=== PATIENT | male | born 1985 | race Caucasian/White ===

== ENCOUNTER 2017-03-26 12:49 | Emergency (ER) | payer OTHER, MEDICAID ==
[2017-03-26 12:57] VITALS: RESP 18
--- NOTE | 2017-03-26 12:59 | EDPHY ---
H & P Time Seen by Provider: 03/26/17 12:58 HPI/ROS: Chief complaint. Upset stomach HPI. Patient comes to the emergency department with another patient decides to check in. He has mid abdominal pain for years. He has had no change it is not worse or having new symptoms. He has been previously worked up for this by PCP though is unsure of the diagnosis. He describes as crampy and sharp. No vomiting or diarrhea. No urinary symptoms. No fever. It is better with eating. No radiation. No chest discomfort or trouble breathing. He asks me several times if I can give him something to eat. ROS Constitutional. no fever/chills, no weakness Eyes. no problems with vision ENT. no sore throat, no nasal drainage Cardiovascular. no chest pain Respiratory. no shortness of breath, no cough Abdominal. Mid abdominal pain for years without vomiting or diarrhea . no problems urinating MS. no calf pain/swelling, no neck/back pain, no joint pain Skin. no rash Lymph. no swollen glands Neuro. no headache, no dizziness, no difficulty walking or with speech Past Medical/Surgical History: Paranoid schizophrenia Social History: Single, daily smoker, no alcohol Smoking Status: Current every day smoker Physical Exam: General Appearance: Alert well-developed male no distress vital signs stable with initial heart rate 110 Eyes: Pupils equal and round no pallor or injection. ENT, Mouth: Mucous membranes are moist. Respiratory: There are no retractions, lungs are clear to auscultation. Cardiovascular: Regular rate and rhythm. Gastrointestinal: Abdomen is soft and nontender, no masses, bowel sounds normal. Neurological: Awake and alert, sensory and motor exams grossly normal. Skin: Warm and dry, no rashes. Musculoskeletal: Neck is supple nontender. Extremities symmetrical, full range of motion. Psychiatric: Patient is oriented X 3, there is no agitation. Constitutional: Initial Vital Signs Temperature (C) 37.0 C 03/26/17 12:54 Heart Rate 110 H 03/26/17 12:54 Respiratory Rate 18 03/26/17 12:54 Blood Pressure 124/79 H 03/26/17 12:54 O2 Sat (%) 94 03/26/17 12:54 O2 Delivery Mode Room Air Allergies/Adverse Reactions: No Known Allergies Allergy (Verified 01/22/14 16:11) Home Medications: Medication Instructions Recorded LORazepam [Ativan] 1 mg PO BID 11/20/14 OLANZapine [Zyprexa] 30 mg PO HS 11/20/14 Oxybutynin Chloride [Oxybutynin 10 mg PO HS 11/20/14 Chloride Er] Zolpidem Tartrate [Ambien] 5 mg PO HS PRN 11/20/14 cloZAPine [Clozapine] 600 mg PO HS 11/20/14 Magnolia Carbonate [Magnolia 600 mg PO HS 11/05/15 Carbonate Cap 300 mg (RX)] Ziprasidone HCl [Geodon] 40 mg PO BID 11/05/15 Medical Decision Making - Diagnostics Imaging Results: One-view upright abdomen shows no evidence of free air or air-fluid levels. It is consistent with constipation ED Course/Re-evaluation: Re-evaluation at 2:10 p.m.. Patient is stable. He and I discussed imaging study results, treatment plan including criteria for return importance of follow -up and further evaluation. He expresses understanding and agreement Differential Diagnosis: Chronic abdominal pain without evidence for acute abdomen. He has had similar symptoms for many years. X-ray consistent with constipation. I also considered viscus perforation and bowel obstruction - Data Points Medications Given: Discontinued Medications Sodium Chloride (Ns) 1,000 mls @ 0 mls/hr IV ONCE ONE; Wide Open PRN Reason: Protocol Stop: 03/26/17 13:01 Last Admin: 03/26/17 13:24 Dose: Not Given Departure - Departure Disposition: Home, Routine, Self-Care Clinical Impression: Abdominal pain Qualifiers: Abdominal location: periumbilical Qualified Code(s): R10.33 - Periumbilical pain Condition: Good Instructions: Constipation (ED), High Fiber Diet (ED) Additional Instructions: Drink plenty of fluids and stay hydrated. Milk of magnesia, magnesium citrate, addison Colace that you may by at the grocery store to help with constipation. Return for worsening pain, fever, vomiting. Recheck in 2-3 days if not improved Referrals: Patient,NotPresent [Unknown] - As per Instructions [facility] [Outside] - 2-3 days, call for appt.
[2017-03-26] MEDS ORDERED: NS 1,000 ML IV ONE (13:00)
[2017-03-26 14:18] VITALS: BP 118/72; PULSE 98; TEMP 98.2; O2SAT 96
== END 2017-03-26 14:18 | disposition home or self-care (01) ==
LOC: EDUNIT#
DX: R10.33 Periumbilical pain (principal); F17.200 Nicotine dependence, unspecified, uncomplicated

== ENCOUNTER 2017-03-27 18:58 | Emergency (ER) | payer OTHER, MEDICAID ==
[2017-03-27] MEDS ORDERED: IPRATROPIUM/ALBUTEROL 3 ML DEYVIAL ONE (19:05)
[2017-03-27] MEDS ORDERED: ALBUTEROL 3 ML DEYVIAL IH ONE (19:10)
--- NOTE | 2017-03-27 19:16 | CPEKG ---
Heart Rate: 96 RR Interval: 625 P-R Interval: 156 QRSD Interval: 114 QT Interval: 380 QTC Interval: 481 P [place]: 70 QRS [place]: 91 T Wave [place]: 37 EKG Severity - ABNORMAL ECG - EKG Impression: SINUS RHYTHM EKG Impression: INCOMPLETE RIGHT BUNDLE BRANCH BLOCK Electronically Signed By: Mely Savage 27-Mar-2017 21:36:44
--- NOTE | 2017-03-27 19:17 | EDPHY ---
HPI/HX/ROS/PE/MDM Narrative: CHIEF COMPLAINT: Abdominal, chest, and head pain HISTORY OF PRESENT ILLNESS: This patient is a 31 year old male with history of schizophrenia arriving via EMS from his private residence complaining of abdominal, heart, and head pain worsening over the last two days. Per EMS, vital signs and EKG were normal in transport. The patient describes his abdominal pain as periumbilical, with slight worsening with food. He endorses reduced appetite. He denies vomiting, diarrhea, fever, history of heartburn or reflux, or history of abdominal surgery. He states his chest pain began around the same time. He endorses shortness of breath, palpitations, lightheadedness, and dry cough. He states he has not tried any medications to relieve his symptoms. He reports he is compliant with his regular medications: Clozaril, Geodon, and Zyprexa. He denies any hallucinations or racing thoughts. He does present with flat affect. No chills, urinary complaints. REVIEW OF SYSTEMS: Aside from elements discussed in the HPI, a comprehensive 10-point review of systems was reviewed and is negative. Limited review due to patient's flat affect. PAST MEDICAL HISTORY: Schizophrenia. SOCIAL HISTORY: Lives alone. Current smoker. VITAL SIGNS: Reviewed by me GENERAL: Flat affect. Well-developed, well-nourished, resting comfortably in no respiratory distress. HEENT: Atraumatic. Eyes: No icterus, no injection. Mouth: moist mucous membranes. No erythema or lesions. Neck: supple with no adenopathy. LUNGS: Coarse, scattered rhonchi. No wheezes. CARDIAC: Regular rate and rhythm, no rubs, murmurs or gallops. ABDOMEN: Epigastric tenderness, LUQ tenderness. No guarding or rebound, soft, nondistended, bowel sounds normal. BACK: No CVA tenderness. EXTREMITIES: No trauma. No edema. Range of motion is normal throughout. NEURO: Alert and oriented, grossly nonfocal. SKIN: Warm and dry, no rash. PSYCHIATRIC: Flat affect. Normal mentation, no agitation. Portions of this note were transcribed by a medical interpreter. I personally performed a history, physical exam, medical decision making, and confirmed accuracy of information the transcribed note. ED Course: The 12 lead EKG was interpreted by myself. See hard copy and/or "tracemaster" electronic copy for interpretation. Sinus rhythm, rate 96. This patient is a 31 year old male with schizophrenia presenting with two day history of chest, abdominal. and head pain. Physical exam reveals epigastric and left upper quadrant tenderness. The patient has rather flat affect, and it was difficult to obtain a full history and review of systems. Plan to order chest x-ray and labs including CBC, CHEM, Troponin, and Lipase. Plan to administer albuterol nebulizer. Patient's laboratory evaluation is largely unremarkable. His lipase is negative. Patient's troponin is negative. Chest x-ray is unremarkable. His shortness of breath was improved with albuterol nebulizer. He received good relief of his epigastric discomfort with the GI cocktail. He tells me that the discomfort has been present for 2 days. I believe this is most likely a GI source, and the patient's chest x-ray does demonstrate airways disease. I doubt coronary artery disease, pancreatitis, or pulmonary infectious process. Patient seems stable on his schizophrenia medications. He is not suicidal, homicidal, or gravely disabled. He feels comfortable being discharged home Plan to discharge home in good condition with instructions to treat his symptoms with omeprazole or similar medication, was given an albuterol meter dose inhaler, and was instructed to follow up with primary care for continued management. The patient is comfortable with this plan. MDM: After history and physical examination, the differential for chest pain and abdominal pain was considered, including but not limited to, myocardial ischemia , acute coronary syndrome, pulmonary embolus, chest wall pain, pleural inflammation, GERD, gastritis, and pulmonary infectious causes. - Data Points Imaging Results: Xray: Chest x-ray was obtained. I viewed the images myself on the PACS system. My interpretation of the images is: Peribronchial fullness, no infiltrate. The radiology interpretation is: Agrees. I discussed the results with the patient. Laboratory Results: Laboratory Results 03/27/17 19:12 03/27/17 19:12 Medications Given: Discontinued Medications Al Hydroxide/Mg Hydroxide (Maalox Susp) 30 ml PO ONCE ONE Stop: 03/27/17 20:03 Last Admin: 03/27/17 20:21 Dose: 30 ml Albuterol (Proventil Neb) 3 ml IH EDNOW ONE Stop: 03/27/17 19:11 Last Admin: 03/27/17 19:14 Dose: 3 ml Hyoscyamine Sulfate (Levsin, Hyomax-Sl) 0.25 mg PO ONCE ONE Stop: 03/27/17 20:03 Last Admin: 03/27/17 20:21 Dose: 0.25 mg Lidocaine (Lidocaine 2% Viscous) 15 ml PO ONCE ONE Stop: 03/27/17 20:03 Last Admin: 03/27/17 20:21 Dose: 15 ml General Initial Vital Signs: Initial Vital Signs Temperature (C) 37.2 C 03/27/17 18:58 Heart Rate 96 03/27/17 18:58 Respiratory Rate 16 03/27/17 18:58 Blood Pressure 106/75 03/27/17 18:58 O2 Sat (%) 94 03/27/17 18:58 O2 Delivery Mode Room Air Allergies/Adverse Reactions: No Known Allergies Allergy (Verified 01/22/14 16:11) Home Medications: Medication Instructions Recorded OLANZapine [Zyprexa] 30 mg PO HS 11/20/14 Ziprasidone HCl [Geodon] 40 mg PO BID 11/05/15 Clozaril (*) 03/27/17 Departure - Departure Disposition: Home, Routine, Self-Care Clinical Impression: Epigastric pain, Atypical chest pain, Mild reactive airways disease Condition: Good Instructions: Diet for Stomach Ulcers and Gastritis (ED), Gastroesophageal Reflux Disease (ED), Esophageal Spasm (ED) Additional Instructions: I do not believe that your chest pain is related to your heart. Your chest and abdominal pain may be related to esophageal spasm and gastric reflux. Please begin taking regular doses of Prilosec. (also called omeprazole) This is available [id number]. You may also try Tums, Maalox, or Mylanta for your discomfort. Please return to the emergency department or seek care urgently if your symptoms recur, or worse despite taking the Prilosec, or you have other concerns. Referrals: Patient,NotPresent [Unknown] - As per Instructions Kinza Oates MD [Medical Doctor] - As per Instructions (Please follow up with for your regular medical care) Report Scribed for: Mely Savage Report Scribed by: Sindy Choudhury Date of Report: 03/27/17 Time of Report: 19:24
[2017-03-27 19:20] LABS: % IMMATURE GRANULYOCYTES 0.2 % (0.0-1.1); ABSOLUTE IMMATURE GRANULOCYTES 0.01 10^3/uL (0.00-0.10); ADD DIFF? NO; ADD MORPH? NO; ADD SCAN? NO; ATYPICAL LYMPHOCYTE FLAG 0 (0-99); FRAGMENT RBC FLAG 0 (0-99); HEMATOCRIT 38.4 % (40.0-51.0); HEMOGLOBIN 13.2 g/dL (13.7-17.5); LEFT SHIFT FLG 0 (0-99); LIPEMIA HEMOLYSIS FLAG 90 (0-99); MEAN CELL HEMOGLOBIN 31.6 pg (27.9-34.1); MEAN CELL HEMOGLOBIN CONCENTR. 34.4 g/dL (32.4-36.7); MEAN CELL VOLUME 91.9 fL (81.5-99.8); MEAN PLATELET VOLUME 9.7 fL (8.7-11.7); PLATELET CLUMPS FLAG 10 (0-99); PLATELET COUNT 208 10^3/uL (150-400); RED BLOOD CELL COUNT 4.18 10^6/uL (4.40-6.38); RED CELL DISTRIBUTION WIDTH 12.1 % (11.5-15.2)
[2017-03-27 19:24] VITALS: O2SAT 94
[2017-03-27 19:32] LABS: ANION GAP 10 mEq/L (8-16); CALCIUM 8.9 mg/dL (8.5-10.4); CARBON DIOXIDE 23 mEq/l (22-31); CHLORIDE 102 mEq/L (97-110); CREATININE 0.8 mg/dL (0.7-1.3); GLOMERULAR FILTRATION RATE > 60; GLUCOSE 136 mg/dL (70-100); POTASSIUM 4.1 mEq/L (3.5-5.2); SODIUM 135 mEq/L (134-144)
[2017-03-27] MEDS ORDERED: HYOSCYAMINE SULFATE 0.125 MG TAB PO ONE (20:02)
[2017-03-27] MEDS ORDERED: LIDOCAINE 2% VISCOUS 15 ML UDCUP PO ONE (20:02)
[2017-03-27] MEDS ORDERED: MAG HYDROX/AL HYDROX/SIMETH 30 ML UDCUP PO ONE (20:02)
[2017-03-27 20:03] LABS: TROPONIN I < 0.012 ng/mL (0-0.034)
[2017-03-27 20:44] VITALS: BP 109/74; PULSE 90; RESP 15; TEMP 98.1
== END 2017-03-27 21:13 | disposition home or self-care (01) ==
LOC: EDUNIT#
DX: R10.13 Epigastric pain (principal); R07.89 Other chest pain; J45.909 Unspecified asthma, uncomplicated; F17.200 Nicotine dependence, unspecified, uncomplicated

== ENCOUNTER 2017-05-13 17:47 | Emergency (ER) | payer OTHER, MEDICAID ==
[2017-05-13 17:51] VITALS: RESP 16
--- NOTE | 2017-05-13 18:29 | EDPHY ---
H & P Time Seen by Provider: 05/13/17 17:50 HPI/ROS: CHIEF COMPLAINT: Insomnia, left groin pain HISTORY OF PRESENT ILLNESS: Patient is a 31-year-old male with a history of paranoid schizophrenia him who presents to the emergency department complaining of insomnia. He states he has been unable to sleep for 3 nights. The patient normally takes Ambien 5 mg at bedtime. Patient is not been taking any stimulants. He denies change in medications. He has been compliant with his medication dosing. Patient has had no recent delusions or other abnormal thoughts. He has no thoughts of wanting to harm himself. Patient also states that he pulled his left groin trying to lift a heavy object today. He does not feel a bulge. He has no nausea or vomiting. REVIEW OF SYSTEMS: My complete review of systems is negative except as mentioned in the HPI. Past Medical/Surgical History: Includes paranoid schizophrenia Past surgical history: Denies Social history: The patient denies drug use. Smoking Status: Current every day smoker Physical Exam: Vitals noted GENERAL: Well-appearing, in no acute distress, alert. HEENT: Eyes normal to inspection, normal pharynx, no signs of dehydration. NECK: No thyromegaly, no lymphadenopathy, supple. RESPIRATORY: Clear to auscultation bilaterally, no rales, rhonchi or wheezing. CVS: Regular rate and rhythm, no rubs, murmurs, or gallops. ABDOMEN: Soft, nontender, nondistended, no organomegaly. Groin: No palpable mass. No hernia BACK: Normal to inspection, no CVA tenderness. SKIN: Normal color, no rash, warm, dry. No pallor. EXTREMITIES: No pedal edema, no calf tenderness, no Homans sign or cords, no joint swelling. NEURO/PSYCH: [Alert and oriented, flat affect, normal motor sensory exam. Constitutional: Initial Vital Signs Temperature (C) 36.9 C 05/13/17 17:49 Heart Rate 102 H 05/13/17 17:49 Respiratory Rate 16 05/13/17 17:49 Blood Pressure 124/88 H 05/13/17 17:49 O2 Sat (%) 94 05/13/17 17:49 O2 Delivery Mode Room Air Allergies/Adverse Reactions: No Known Allergies Allergy (Verified 01/22/14 16:11) Home Medications: Medication Instructions Recorded OLANZapine [Zyprexa] 30 mg PO HS 11/20/14 Ziprasidone HCl [Geodon] 40 mg PO BID 11/05/15 Clozaril (*) 03/27/17 Medical Decision Making ED Course/Re-evaluation: In the emergency department I discussed possible etiologies with the patient. I instructed him to take 2 tablets of his Ambien when he cannot sleep. This is a total of 10 mg. I explained this in depth to him. Has a prescription for the medication. He is given warnings prior to leaving. He will return with worsening symptoms. I doubt hernia, incarcerated hernia, strangulated hernia. Differential Diagnosis: My differential includes but is not limited to insomnia, schizophrenia, stimulant use, suicidal ideation Departure - Departure Disposition: Home, Routine, Self-Care Clinical Impression: Insomnia Qualifiers: Insomnia type: unspecified Qualified Code(s): G47.00 - Insomnia, unspecified Inguinal strain Qualifiers: Encounter type: initial encounter Laterality: left Qualified Code(s): S76.212A - Strain of adductor muscle, fascia and tendon of left thigh, initial encounter Condition: Good Instructions: Insomnia (ED), Groin Strain (ED) Additional Instructions: When you have insomnia you can take a total of 10 mg of Ambien. That is 2 tablets nightly. Referrals: Kristi Pina MD [Medical Doctor] - 5-7 days, call for appt.
[2017-05-13 19:09] VITALS: BP 110/71; PULSE 110; TEMP 98.1; O2SAT 96
== END 2017-05-13 19:08 | disposition home or self-care (01) ==
LOC: EDUNIT#
DX: S39.011A Strain of muscle, fascia and tendon of abdomen, initial encounter (principal); G47.00 Insomnia, unspecified; F17.200 Nicotine dependence, unspecified, uncomplicated; X50.0XXA Overexertion from strenuous movement or load, initial encounter; Y93.F2 Activity, caregiving, lifting

== ENCOUNTER 2018-02-22 22:27 | Emergency (ER) | payer OTHER, MEDICAID ==
[2018-02-22 22:37] VITALS: BP 108/83
--- NOTE | 2018-02-22 22:38 | EDPHY ---
H & P Stated Complaint: panic attack Time Seen by Provider: 02/22/18 22:28 HPI/ROS: CHIEF COMPLAINT: "Let me sleep" HISTORY OF PRESENT ILLNESS: 32-year-old male history of schizophrenia arrives via ambulance complaining of acute self-described panic attack. He has no benzodiazepines. No seizure. No suicidal homicidal ideation. When I interview the patient he is requesting that left him sleep noting that he is tired. Denies alcohol or drug use. REVIEW OF SYSTEMS: A ten point review of systems was performed and is negative with the exception of the items mentioned in the HPI PAST MEDICAL & SURGICAL HISTORY: Schizophrenia SOCIAL HISTORY: Denies acute alcohol or drug use. Positive tobacco abuse. PHYSICAL EXAM (Prior to examination, patient consented to physical exam, hands were washed and my usual and customary physical exam procedures followed) 1) GENERAL: Well-developed, well-nourished, alert and oriented. Sleeping, appears comfortable and calm, easily awoken. Answering questions appropriately. GCS 15. 2) HEAD: Normocephalic, atraumatic 3) HEENT: Pupils equal, round, reactive to light bilaterally. Sclera anicteric. Nasopharynx, oropharynx, clear, no lesions. [ 4) NECK: Full range of motion, no meningeal signs. 5) LUNGS: Clear auscultation bilaterally, no wheezes, no rhonchi, no retractions. 6) HEART: Regular rate and rhythm, no murmur, no heave, no gallop. 7) ABDOMEN: No guarding, no rebound, no focal tenderness, negative McBurney's, negative Lui's, negative Rovsing's, negative peritoneal sign, 8) MUSCULOSKELETAL: Moving all extremities, no focal areas of tenderness, no obvious trauma. No peripheral edema or discoloration. 9) BACK: No CVA tenderness, no midline vertebral tenderness, no fluctuance, no step-off, no obvious trauma, no visual or palpable abnormality. 10) SKIN: No rash, no petechiae. 11) Psychiatric: Patient is oriented X 3, there is no agitation. 12) NEURO: Awake, alert, and oriented to person, place and time. Answers questions appropriately. There were no obvious focal neurologic abnormalities. No cerebellar dysfunction. Cranial nerves 2 through to 12 intact. Normal steady gait. Upper and lower extremities bilaterally with strength 5 / 5, reflexes 2+. DIFFERENTIAL DIAGNOSIS: In no particular order including but limited to psychosis, laura, depression, suicidal ideation, acute anxiety - Personal History Current Tetanus/Diphtheria Vaccine: No Current Tetanus Diphtheria and Acellular Pertussis (TDAP): No - Medical/Surgical History Hx Asthma: No Hx Chronic Respiratory Disease: No Hx Diabetes: No Hx Cardiac Disease: No Hx Renal Disease: No Hx Cirrhosis: No Hx Alcoholism: No Hx HIV/AIDS: No Hx Splenectomy or Spleen Trauma: No Other PMH: paranoid schizophrenia, acesthia - Social History Smoking Status: Current every day smoker Constitutional: Initial Vital Signs Temperature (C) 37.0 C 02/22/18 22:35 Heart Rate 86 02/22/18 22:35 Respiratory Rate 16 02/22/18 22:35 Blood Pressure 108/83 H 02/22/18 22:35 O2 Sat (%) 95 02/22/18 22:35 O2 Delivery Mode Room Air Allergies/Adverse Reactions: No Known Allergies Allergy (Verified 02/22/18 22:36) Home Medications: Medication Instructions Recorded OLANZapine [Zyprexa] 30 mg PO HS 11/20/14 Ziprasidone HCl [Geodon] 40 mg PO BID 11/05/15 Clozaril (*) 03/27/17 Klonopin 02/22/18 Medical Decision Making ED Course/Re-evaluation: 10:40 p.m.: The patient is requesting that I let him sleep. He is answering questions appropriately with no signs of overt intoxication. I am hesitant to provide him benzodiazepines for self-described panic attack as he currently appears very comfortable. He did initially complain of abdominal cramping. I have examined his abdomen which is soft no guarding no rebound no McBurney's point pain. Doubt acute surgical abdominal pathology. He denies testicular genitalia complaints. I do not think the patient meets criteria for an M1 hold. I do not identify emergent condition requiring intervention at this time. Plan will be discharge from the ER. Care of patient under supervision of secondary supervising physician Dr Duarte . Departure - Departure Disposition: Home, Routine, Self-Care Clinical Impression: Anxiety Condition: Good Instructions: Anxiety (ED) Additional Instructions: Return to the ER immediately if you experience thoughts of hurting yourself, thoughts of hurting other people, thoughts of killing other people or killing yourself. Referrals: [facility],. [Clinic] - 1-2 days without fail
== END 2018-02-22 22:50 | disposition home or self-care (01) ==
LOC: EDUNIT#
DX: F41.9 Anxiety disorder, unspecified (principal); F17.200 Nicotine dependence, unspecified, uncomplicated

== ENCOUNTER 2018-02-28 19:18 | Emergency (ER) | payer OTHER, MEDICAID ==
--- NOTE | 2018-02-28 19:42 | EDPHY ---
H & P Time Seen by Provider: 02/28/18 19:25 HPI/ROS: CHIEF COMPLAINT: Paranoid schizophrenia HISTORY OF PRESENT ILLNESS: 32-year-old male presents to the emergency department for medical clearance. The patient has a history of paranoid schizophrenia. He has been compliant with his medications. He recently started Depakote. He is here for medical clearance to go to a crisis stabilization unit. He admits to smoking cigarettes. Denies any other substance abuse. Denies suicidal or homicidal ideation. Denies any physical complaints at this time. REVIEW OF SYSTEMS: Constitutional: No fever, no chills. Eyes: No double or blurry vision. ENT: No sore throat. Respiratory: No cough, no shortness of breath. Cardiac: No chest pain. Gastrointestinal: No abdominal pain, vomiting or diarrhea. Genitourinary: No dysuria. Musculoskeletal: No neck or back pain. Skin: No rashes. Neurological: No headache. Past Medical/Surgical History: Paranoid schizophrenia Social History: Single Smoking Status: Current every day smoker Physical Exam: General Appearance: Alert, no distress. Eyes: Pupils equal and round. Extraocular motions are all intact. ENT: Mouth: Mucous membranes moist. Respiratory: No wheezing, rhonchi, or rales, lungs are clear to auscultation. Cardiovascular: Regular rate and rhythm. Gastrointestinal: Abdomen is soft and nontender, no masses, no rebound or guarding, bowel sounds normal. Neurological: Alert and oriented x 3, cranial nerves II through XII grossly intact Skin: Warm and dry, no rashes. Musculoskeletal: Nontender to palpate along the cervical, thoracic or lumbar spine. Neck is supple. Extremities: Full range of motion and no peripheral edema. Psychiatric: Patient is oriented X 3, there is no agitation. Constitutional: Initial Vital Signs Temperature (C) 36.4 C 02/28/18 19:28 Heart Rate 85 02/28/18 19:28 Respiratory Rate 16 02/28/18 19:28 Blood Pressure 112/74 02/28/18 19:28 O2 Sat (%) 98 02/28/18 19:28 O2 Delivery Mode Room Air Allergies/Adverse Reactions: No Known Allergies Allergy (Verified 02/28/18 19:29) Home Medications: Medication Instructions Recorded Ziprasidone HCl [Geodon] 40 mg PO BID 11/05/15 Klonopin 02/22/18 Abilify 02/28/18 Clozapine 02/28/18 Depakote 02/28/18 Ingrezza 02/28/18 Miralax 17 gm (*) 02/28/18 Oxybutynin 02/28/18 traZODone 02/28/18 Medical Decision Making ED Course/Re-evaluation: 32-year-old male presents to the emergency department requesting laboratory studies to be medically cleared for crisis stabilization unit. The patient has been medically cleared. He will be transported by cab to crisis stabilization unit. Differential Diagnosis: Depression including functional and major depression, situational depression, medication side effect, drugs and alcohol abuse. - Data Points Laboratory Results: Laboratory Results 02/28/18 19:50 02/28/18 19:50 02/28/18 02/28/18 02/28/18 19:50 19:50 19:50 WBC 7.42 10^3/uL 10^3/uL (3.80-9.50) RBC 5.23 10^6/uL 10^6/uL (4.40-6.38) Hgb 16.8 g/dL g/dL (13.7-17.5) Hct 49.7 % % (40.0-51.0) MCV 95.0 fL fL (81.5-99.8) MCH 32.1 pg pg (27.9-34.1) MCHC 33.8 g/dL g/dL (32.4-36.7) RDW 13.2 % % (11.5-15.2) Plt Count 253 10^3/uL 10^3/uL (150-400) MPV 10.6 fL fL (8.7-11.7) Neut % (Auto) 50.6 % % (39.3-74.2) Lymph % (Auto) 36.7 % % (15.0-45.0) [place] % (Auto) 8.5 % % (4.5-13.0) Eos % (Auto) 2.8 % % (0.6-7.6) Baso % (Auto) 1.1 % % (0.3-1.7) Nucleat RBC Rel Count 0.0 % % (0.0-0.2) Absolute Neuts (auto) 3.76 10^3/uL 10^3/uL (1.70-6.50) Absolute Lymphs (auto) 2.72 10^3/uL 10^3/uL (1.00-3.00) Absolute Monos (auto) 0.63 10^3/uL 10^3/uL (0.30-0.80) Absolute Eos (auto) 0.21 10^3/uL 10^3/uL (0.03-0.40) Absolute Basos (auto) 0.08 10^3/uL 10^3/uL (0.02-0.10) Absolute Nucleated RBC 0.00 10^3/uL 10^3/uL (0-0.01) Immature Gran % 0.3 % % (0.0-1.1) Immature Gran # 0.02 10^3/uL 10^3/uL (0.00-0.10) Sodium 141 mEq/L mEq/L (135-145) Potassium 4.9 mEq/L mEq/L (3.3-5.0) Chloride 98 mEq/L mEq/L (97-110) Carbon Dioxide 30 mEq/l mEq/l (22-31) Anion Gap 13 mEq/L mEq/L (8-16) BUN 15 mg/dL mg/dL (7-23) Creatinine 0.7 mg/dL mg/dL (0.7-1.3) Estimated GFR > 60 Glucose 75 mg/dL mg/dL (70-100) Calcium 9.1 mg/dL mg/dL (8.5-10.4) TSH 1.150 uIU/mL uIU/mL (0.465-4.680) Specimen Hemolysis 212 Urine Opiates Screen NEGATIVE (NEGATIVE) Urine Barbiturates NEGATIVE (NEGATIVE) Ur Phencyclidine Scrn NEGATIVE (NEGATIVE) Ur Amphetamine Screen NEGATIVE (NEGATIVE) U Benzodiazepines Scrn NEGATIVE (NEGATIVE) Urine Cocaine Screen NEGATIVE (NEGATIVE) U Marijuana (THC) Screen NEGATIVE (NEGATIVE) Ethyl Alcohol < 10 mg/dL mg/dL (0-10) Departure - Departure Disposition: Home, Routine, Self-Care Clinical Impression: Paranoid schizophrenia Condition: Good Instructions: Psychotic Disorder (ED) Additional Instructions: You are being discharged to a crisis stabilization unit.
[2018-02-28 19:56] LABS: PLATELET COUNT 253 10^3/uL (150-400)
[2018-02-28 20:38] VITALS: BP 121/82
== END 2018-02-28 20:42 | disposition home or self-care (01) ==
DX: F20.0 Paranoid schizophrenia (principal); F17.200 Nicotine dependence, unspecified, uncomplicated
CPT/HCPCS: 80305; G0480

== ENCOUNTER 2018-03-28 12:27 | Emergency (ER) | payer OTHER, MEDICAID ==
[2018-03-28] MEDS ORDERED: LORazepam 1 MG TAB PO ONE (12:49)
--- NOTE | 2018-03-28 12:49 | EDPHY ---
General Time Seen by Provider: 03/28/18 12:41 Narrative: CHIEF COMPLAINT: "Anxiety attack" HISTORY OF PRESENT ILLNESS: Patient presents by EMS with complaints of anxiety attack. He says that he started feeling anxious 2 days ago while at rest. He thinks it is related to having his Abilify discontinued 2 days ago. He says he has "felt shaky, anxious and my stomach is burning." He denies suicidal ideation or homicidal ideation. He says that he feels anxious and has had the same feeling in the past many times. No chest pain or shortness of breath. He has been taking his Depakote, Geodon, but did not take his Klonopin. No modifying factors for this. No other associated complaints. REVIEW OF SYSTEMS: Ten systems reviewed and are negative unless otherwise noted in the HPI PCP: None SPECIALISTS: Dr. Quintana at [facility] PAST MEDICAL HISTORY: Paranoid schizophrenia PAST SURGICAL HISTORY: No recent surgeries SOCIAL HISTORY: Admits to cigarette use. Denies alcohol or drug use. FAMILY HISTORY: Noncontributory EXAMINATION General Appearance: Alert, no distress. Well-developed well-nourished. Head: normocephalic, atraumatic Eyes: Pupils equal and round, no conjunctival pallor or injection ENT, Mouth: Mucous membranes moist Neck: Normal inspection, supple, non-tender Respiratory: Lungs are clear to auscultation Cardiovascular: Regular rate and rhythm Gastrointestinal: Abdomen is soft and nontender Back: non-tender, no bony abnormalities Neurological: A&O, nonfocal, normal gait Skin: Warm and dry, no rash Extremities: Nontender, no pedal edema Psychiatric: Flat affect. Anxious. Denies suicidal ideation. Does not exhibit depressive affect are mood DIFFERENTIAL DIAGNOSES: Including but not limited to anxiety attack, schizophrenia, medication adverse reaction, MDM: 12:50 p.m. Self reported anxiety attack. The patient does appear to be anxious. He does not appear to be suicidal or homicidal. He does exhibit flat affect but is on many medications that are consistent with this. He is not taking his Klonopin, thus I have ordered a dose of benzodiazepine here. 1:25 p.m. Notified by RN that the patient is feeling significantly better with the p.o. Ativan. He is asking to go home. I do feel he is stable for discharge home. He is here only for anxiety and not suicidal ideation. He has [facility] to follow up with for his medications. He has Klonopin at home. We discussed ED precautions, he is discharged home stable condition. SUPERVISION: This patient was independently evaluated without direct involvement of or examination by the attending physician. - History Smoking Status: Current every day smoker - Objective Vital Signs: Initial Vital Signs Temperature (C) 98.1 F 03/28/18 12:35 Heart Rate 106 H 03/28/18 12:35 Respiratory Rate 18 03/28/18 12:35 Blood Pressure 102/75 03/28/18 12:35 O2 Sat (%) 94 03/28/18 12:35 O2 Delivery Mode Room Air Allergies/Adverse Reactions: No Known Allergies Allergy (Verified 02/28/18 19:29) Home Medications: Medication Instructions Recorded Depakote 03/28/18 Klonopin 03/28/18 OLANZapine [Zyprexa] 03/28/18 Oxybutynin 03/28/18 cloNIDine HCL [Clonidine HCl] 03/28/18 Medications Given: Discontinued Medications Lorazepam (Ativan) 1 mg PO EDNOW ONE Stop: 03/28/18 12:50 Last Admin: 03/28/18 12:54 Dose: 1 mg Departure - Departure Disposition: Home, Routine, Self-Care Clinical Impression: Anxiety reaction Condition: Good Instructions: Anxiety (ED), Anxiolysis in Adults (ED) Additional Instructions: 1. Continue your previous prescription of Klonopin as needed for anxiety 2. Contact [facility] provider for further care 3. Return here for any change your symptoms, suicidal thoughts Referrals: Patient,NotPresent [Unknown] - As per Instructions Lenny Quintana MD [Non Staff Provider (MD)] - As per Instructions
[2018-03-28 13:45] VITALS: BP 110/80
== END 2018-03-28 13:43 | disposition home or self-care (01) ==
LOC: EDUNIT#
DX: F41.1 Generalized anxiety disorder (principal); F17.210 Nicotine dependence, cigarettes, uncomplicated